=== PATIENT | female | born 1980 | race Hispanic/Latino ===

== ENCOUNTER → 2018-06-28 | Outpatient (CLI) | payer BC | END | disposition home or self-care (01) | LOC: RAH 13:44 | PROVIDERS: ATTEND Obstetrics & Gynecology | DX: D25.9 Leiomyoma of uterus, unspecified (principal); D48.62 Neoplasm of uncertain behavior of left breast; R10.2 Pelvic and perineal pain | CPT/HCPCS: 76642; 76856 ==

== ENCOUNTER 2018-07-06 18:36 | Emergency (ER) | payer BC ==
[2018-07-06 19:49] LABS: BASOPHILS % (AUTO) 0.9 % (0.0-5.0); EOSINOPHILS % (AUTO) 1.5 % (0.0-8.0); HEMATOCRIT 44.3 % (36-48); LYMPHOCYTES % (AUTO) 38.1 % (21.0-51.0); MEAN CORPUSCULAR HEMOGLOBIN 30.1 pg (27.0-33.0); MEAN CORPUSCULAR HGB CONC 33.6 g/dL (32.0-36.0); MEAN CORPUSCULAR VOLUME 89.6 fL (79-99); MONOCYTES % (AUTO) 5.4 % (3.0-13.0); NEUTROPHILS % (AUTO) 54.1 % (40.0-77.0); NUCLEATED RED BLOOD CELLS 0.1 % (0.0-0.19); PLATELET COUNT (AUTO) 292 K/uL (130-400); RED BLOOD CELL COUNT(AUTO) 4.95 MIL/uL (4.00-5.50); RED CELL DISTRIBUTION WIDTH 12.9 % (11.0-15.5); WHITE BLOOD COUNT (AUTO) 6.2 K/uL (4.8-10.8)
[2018-07-06 19:50] LABS: APPEARANCE,URINE Clear (CLEAR); BILIRUBIN,URINE Negative (NEGATIVE); COLOR,URINE Yellow (YELLOW); GLUCOSE, URINE (UA) >=1000 mg/dL (NEGATIVE); KETONES,URINE >=160 mg/dL (NEGATIVE); LEUKOCYTE ESTERASE ,URINE Negative (NEGATIVE); NITRATE,URINE Negative (NEGATIVE); OCCULT BLOOD,URINE Moderate (NEGATIVE); PH,URINE 5.5 (5.0-8.0); PROTEIN,URINE Negative (NEGATIVE); UROBILINOGEN,URINE 0.2 mg/dL (0.2-1.0)
[2018-07-06 19:56] LABS: HCG,QUAL RESULT NEGATIVE (NEGATIVE)
[2018-07-06 20:00] LABS: WBC,URINE 0-1 /HPF (0-1)
[2018-07-06 20:01] LABS: BACTERIA,URINE Rare /HPF (None Seen); SQUAMOUS EPITHELIAL CELL,UR Rare /HPF (0-2)
[2018-07-06 20:04] LABS: CREATININE 0.8 mg/dL (0.5-1.5)
[2018-07-06] MEDS ORDERED: INSULIN HUMULIN R 100 UNIT/ML 3ML ONE (21:03)
== END 2018-07-06 21:37 | disposition home or self-care (01) ==
LOC: EDH 18:36
DX: E11.65 Type 2 diabetes mellitus with hyperglycemia (principal)
CPT/HCPCS: 36415; 80048; 81001; 81025; 82948 ×3; 85025; 96361; 96374; 99285; J1815

== ENCOUNTER 2020-04-14 08:57 | Inpatient (IN) | payer BC ==
[~2020-04-14] VITALS: Ht 165.1 cm; Wt 61.2 kg
[2020-04-14] MEDS ORDERED: ONDANSETRON HCL 4 MG/2 ML VIAL ONE ×3 (09:23→18:49)
[2020-04-14 09:33] LABS: BASOPHILS % (AUTO) 0.4 % (0.0-5.0); EOSINOPHILS % (AUTO) 0.1 % (0.0-8.0); HEMATOCRIT 52.8 % (36-48); LYMPHOCYTES % (AUTO) 24.4 % (21.0-51.0); MEAN CORPUSCULAR HEMOGLOBIN 29.5 pg (27.0-33.0); MEAN CORPUSCULAR HGB CONC 33.1 g/dL (32.0-36.0); MEAN CORPUSCULAR VOLUME 88.9 fL (79-99); MONOCYTES % (AUTO) 5.1 % (3.0-13.0); PLATELET COUNT (AUTO) 460 K/uL (130-400); RED BLOOD CELL COUNT(AUTO) 5.94 MIL/uL (4.00-5.50); RED CELL DISTRIBUTION WIDTH 13.7 % (11.0-15.5); WHITE BLOOD COUNT (AUTO) 18.9 K/uL (4.8-10.8)
[2020-04-14 09:45] LABS: ALBUMIN 4.4 g/dL (3.5-5.0); BILIRUBIN,TOTAL 0.5 mg/dL (0.2-1.0); CREATININE 1.6 mg/dL (0.5-1.5); POTASSIUM 4.3 mmol/L (3.5-5.1); TOTAL PROTEIN, SERUM 9.8 g/dL (6.0-8.3)
[2020-04-14 09:54] LABS: ABG OXYGEN SATURATION 67.8 % (95.0-99.0); BASE EXCESS,VENOUS BLOOD GAS -19.3 (-2.0-3.0); HCO3,VENOUS BLOOD GAS 8.7 (21.0-28.0); PCO2,VENOUS BLOOD GAS 28 (32-45)
[2020-04-14] MEDS ORDERED: POTASSIUM BICARB/CIT AC 25 MEQ TABLET.EFF ONE (10:55)
[2020-04-14] MEDS ORDERED: INSULIN HUMULIN R 100 UNIT/ML 3ML ONE (10:56)
[2020-04-14 11:51] LABS: APPEARANCE,URINE Clear (CLEAR); BILIRUBIN,URINE Negative (NEGATIVE); COLOR,URINE Yellow (YELLOW); GLUCOSE, URINE (UA) >=1000 mg/dL (NEGATIVE); KETONES,URINE >=160 mg/dL (NEGATIVE); LEUKOCYTE ESTERASE ,URINE Negative (NEGATIVE); NITRATE,URINE Negative (NEGATIVE); OCCULT BLOOD,URINE Negative (NEGATIVE); PROTEIN,URINE POS 1+ mg/dL (NEGATIVE); UROBILINOGEN,URINE 0.2 mg/dL (0.2-1.0)
[2020-04-14] MEDS ORDERED: DEXTROSE 5 %-0.45 % NACL 1,000 ML IV PRN (12:11)
[2020-04-14] MEDS ORDERED: SODIUM CHLORIDE 0.9% 1000ML 1,000 ML IV SCH (12:11)
[2020-04-14 12:15] LABS: HCG,QUAL RESULT NEGATIVE (NEGATIVE)
[2020-04-14] MEDS ORDERED: POTASSIUM CHLORIDE 10MEQ/100ML 100 ML IV PRN (12:15)
[2020-04-14 12:16] LABS: BACTERIA,URINE Few /HPF (None Seen)
[2020-04-14 12:17] LABS: RBC,URINE 0-1 /HPF (0-1); WBC,URINE 0-1 /HPF (0-1); YEAST,URINE BUDDING Few /HPF (None Seen)
[2020-04-14 12:26] LABS: PHOSPHORUS 1.9 mg/dL (2.5-4.9)
[2020-04-14 13:38] LABS: ABG BASE EXCESS -17.5 mmol/L (-2.0-3.0); ABG HCO3 8.4 mmol/L (21.0-28.0); ABG OXYGEN SATURATION 96.3 % (95.0-99.0); ABG PCO2 22 mmHg (32-45)
[2020-04-14] MEDS ORDERED: INSULIN HUMULIN R 100 UNIT/ML 3ML IV SCH (13:40)
[2020-04-14 14:24] LABS: CREATININE 0.9 mg/dL (0.5-1.5); POTASSIUM 4.6 mmol/L (3.5-5.1)
[2020-04-14] MEDS ORDERED: SODIUM BICARB 50MEQ 50ML VIAL ONE ×2 (14:37→14:41)
[2020-04-14] MEDS ORDERED: SODIUM BICARB 50MEQ 50ML VIAL IV PRN (14:45)
[2020-04-14] MEDS ORDERED: NS-20 MEQ KCL 1000ML 1,000 ML IV ONE (15:06)
[2020-04-14] MEDS ORDERED: MORPHINE SULFATE 4 MG/1ML SYG IV PRN (16:00)
[2020-04-14] MEDS ORDERED: LACTULOSE 20 GM/30 ML UDCUP PO PRN (16:00)
[2020-04-14] MEDS ORDERED: ACETAMINOPHEN-CODEINE 300/30MG TAB PO PRN (16:00)
[2020-04-14] MEDS ORDERED: QUETIAPINE FUMARATE 25 MG TAB PO PRN (16:00)
[2020-04-14] MEDS ORDERED: ACETAMINOPHEN 325 MG TAB PO PRN ×2 (16:00)
[2020-04-14 17:58] LABS: HEMOGLOBIN A1C 5.9 % (4.0-6.0)
[2020-04-14 18:21] LABS: POTASSIUM 3.8 mmol/L (3.5-5.1)
[2020-04-14 18:31] LABS: MAGNESIUM 1.9 mg/dL (1.80-2.40)
[2020-04-14 18:36] LABS: ABG BASE EXCESS -12.1 mmol/L (-2.0-3.0); ABG HCO3 12.1 mmol/L (21.0-28.0); ABG OXYGEN SATURATION 97.2 % (95.0-99.0); ABG PCO2 25 mmHg (32-45)
[2020-04-14] MEDS ORDERED: FAMOTIDINE/PF 20 MG/2 ML VIAL IV ONE (21:18)
[2020-04-14] MEDS ORDERED: DEXTROSE 5 %-0.45 % NACL 1,000 ML IV ONE (22:14)
[2020-04-15] VITALS (28 sets, daily range): BP systolic 102–135; BP diastolic 46–94
[2020-04-15 00:18] LABS: ABG BASE EXCESS -14.6 mmol/L (-2.0-3.0); ABG HCO3 10.3 mmol/L (21.0-28.0); ABG OXYGEN SATURATION 97.6 % (95.0-99.0); ABG PCO2 23 mmHg (32-45)
[2020-04-15] MEDS ORDERED: ASPIRIN 325MG EC TAB 325 MG TABLET.DR PO STA (00:36)
[2020-04-15] MEDS ORDERED: SODIUM BICARB 8.4% 50ML SYRING 150 MEQ in DEXTROSE 5%-WATER 850 ML IV SCH (00:45)
[2020-04-15] MEDS ORDERED: SODIUM BICARB 8.4% 50ML SYRINGE IVP SCH (00:45)
[2020-04-15] MEDS ORDERED: DEXTROSE 5%-WATER 1,000 ML IV ONE (00:55)
[2020-04-15 01:02] LABS: CREATININE 0.9 mg/dL (0.5-1.5); MAGNESIUM 2.1 mg/dL (1.80-2.40); POTASSIUM 3.6 mmol/L (3.5-5.1)
[2020-04-15] MEDS ORDERED: INSULIN HUMULIN R 100 UNIT/ML 3ML ONE (01:02)
[2020-04-15] MEDS: ONDANSETRON HCL 4 MG/2 ML VIAL IV PRN ×3 (03:45→17:25)
[2020-04-15 04:37] LABS: CREATININE 0.9 mg/dL (0.5-1.5); MAGNESIUM 2.2 mg/dL (1.80-2.40); POTASSIUM 3.4 mmol/L (3.5-5.1)
[2020-04-15 07:41] LABS: BASOPHILS % (AUTO) 0.6 % (0.0-5.0); EOSINOPHILS % (AUTO) 0.2 % (0.0-8.0); HEMATOCRIT 34.8 % (36-48); LYMPHOCYTES % (AUTO) 19.4 % (21.0-51.0); MEAN CORPUSCULAR HEMOGLOBIN 29.6 pg (27.0-33.0); MEAN CORPUSCULAR HGB CONC 33.9 g/dL (32.0-36.0); MEAN CORPUSCULAR VOLUME 87.2 fL (79-99); MONOCYTES % (AUTO) 8.8 % (3.0-13.0); NEUTROPHILS % (AUTO) 70.4 % (40.0-77.0); PLATELET COUNT (AUTO) 301 K/uL (130-400); RED BLOOD CELL COUNT(AUTO) 3.99 MIL/uL (4.00-5.50); RED CELL DISTRIBUTION WIDTH 14.1 % (11.0-15.5); WHITE BLOOD COUNT (AUTO) 12.2 K/uL (4.8-10.8)
[2020-04-15] MEDS ORDERED: POTASSIUM CHLORIDE 20 MEQ/100 ML BAG IV SCH (08:15)
[2020-04-15 08:21] LABS: ABG OXYGEN SATURATION 74.7 % (95.0-99.0); BASE EXCESS,VENOUS BLOOD GAS -1.2 (-2.0-3.0); HCO3,VENOUS BLOOD GAS 23.5 (21.0-28.0); PCO2,VENOUS BLOOD GAS 40 (32-45); PH,VENOUS BLOOD GAS 7.391 (7.350-7.450)
[2020-04-15] MEDS ORDERED: POTASSIUM CHLORIDE 20MEQ/100ML 100 ML IV SCH (08:30)
[2020-04-15] MEDS: FAMOTIDINE/PF 20 MG/2 ML VIAL IV SCH ×3 (08:42→22:51)
[2020-04-15] MEDS: ENOXAPARIN SODIUM 40 MG/0.4 ML SYRINGE SQ SCH ×2 (08:43→22:52)
[2020-04-15] MEDS ORDERED: ENOXAPARIN SODIUM 40 MG/0.4 ML SYRINGE SQ SCH (09:00)
[2020-04-15] MEDS ORDERED: D5W-1/2 NS/20MEQ KCL 1,000 ML IV SCH (10:45)
[2020-04-15] MEDS: INSULIN HUMULIN R 100 UNIT/ML 3ML SQ SCH ×3 (11:30→21:00)
[2020-04-15 11:43] LABS: ABG BASE EXCESS -4.1 mmol/L (-2.0-3.0); ABG HCO3 20.7 mmol/L (21.0-28.0); ABG OXYGEN SATURATION 33.9 % (95.0-99.0); ABG PCO2 37 mmHg (32-45)
[2020-04-15 11:55] LABS: CREATININE 0.8 mg/dL (0.5-1.5); PHOSPHORUS 1.1 mg/dL (2.5-4.9); POTASSIUM 3.4 mmol/L (3.5-5.1)
[2020-04-15] MEDS: POTASSIUM PHOSPHATE 30 MMOL in SODIUM CHLORIDE 0.9% 250 ML IV SCH (13:36)
--- NOTE | 2020-04-15 14:36 | NUR ---
SHANDA PLAN PATIENT IN COVID UNIT. CALLED ROOM NO ANSWER. XIOMARA WILL CONTINUE TO FOLLOW. Addendum: 04/15/20 at 1438 by ARI LOPEZ RN CM Amended: Links added.
--- NOTE | 2020-04-15 16:16 | NUR ---
CHART CHECK COMPLETED. Pt IS A 39 Y.O. FEMALE ADMITTED SECONDARY TO DKA, ACUTE KIDNEY INJURY. Pt HAS A PAST MEDICAL HISTORY SIGNIFICANT FOR DMII, ANXIETY. Pt CURRENTLY NPO SECONDARY TO N&V. PLEASE REQUEST FORMAL SKILLED SPEECH/SWALLOW EVALUATION IF Pt PRESENTS WITH +S/S OF ASPIRATION SUCH COUGH RESPONSE, THROAT CLEAR, OR WET VOCAL QUALITY DURING P.O. Addendum: 04/15/20 at [address] Amended: Links added.
[2020-04-15 20:39] LABS: CREATININE 0.8 mg/dL (0.5-1.5); POTASSIUM 3.7 mmol/L (3.5-5.1)
[2020-04-16] VITALS (11 sets, daily range): BP systolic 114–132; BP diastolic 74–95
[2020-04-16 06:11] LABS: BASOPHILS % (AUTO) 0.9 % (0.0-5.0); EOSINOPHILS % (AUTO) 0.2 % (0.0-8.0); HEMATOCRIT 36.9 % (36-48); LYMPHOCYTES % (AUTO) 30.5 % (21.0-51.0); MEAN CORPUSCULAR HEMOGLOBIN 28.8 pg (27.0-33.0); MEAN CORPUSCULAR HGB CONC 33.6 g/dL (32.0-36.0); MEAN CORPUSCULAR VOLUME 85.8 fL (79-99); MONOCYTES % (AUTO) 6.7 % (3.0-13.0); PLATELET COUNT (AUTO) 282 K/uL (130-400); WHITE BLOOD COUNT (AUTO) 5.7 K/uL (4.8-10.8)
[2020-04-16 06:23] LABS: CREATININE 0.6 mg/dL (0.5-1.5); PHOSPHORUS 1.6 mg/dL (2.5-4.9); POTASSIUM 3.4 mmol/L (3.5-5.1)
[2020-04-16 07:00] LABS: ABG BASE EXCESS -8.1 mmol/L (-2.0-3.0); ABG HCO3 15.3 mmol/L (21.0-28.0); ABG OXYGEN SATURATION 96.6 % (95.0-99.0); ABG PCO2 27 mmHg (32-45)
[2020-04-16] MEDS: INSULIN HUMULIN R 100 UNIT/ML 3ML SQ SCH ×4 (07:30→21:00)
[2020-04-16] MEDS: FAMOTIDINE/PF 20 MG/2 ML VIAL IV SCH ×2 (07:59→21:00)
[2020-04-16] MEDS: ENOXAPARIN SODIUM 40 MG/0.4 ML SYRINGE SQ SCH ×2 (08:00→21:00)
[2020-04-16] MEDS: ONDANSETRON HCL 4 MG/2 ML VIAL IV PRN (08:00)
[2020-04-16] MEDS: POTASSIUM PHOSPHATE 30 MMOL in SODIUM CHLORIDE 0.9% 250 ML IV SCH (08:57)
--- NOTE | 2020-04-16 10:54 | NUR ---
SHANDA PLAN VISITED WITH PATIENT. PATIENT IN COVID UNIT. CALLED ROOM NO ANSWER. XIOMARA WILL CONTINUE TO FOLLOW. Addendum: 04/16/20 at 1056 by ARI LOPEZ RN CM Amended: Links added.
--- NOTE | 2020-04-16 11:00 | NUR ---
TRANSFER TO 330 REPORT GIVEN, PATIENT STABLE, TRANSFERRING TO ROOM 330 ON WHEELCHAIR.
--- NOTE | 2020-04-16 11:08 | NUR ---
TRANSFER FROM 2ND PATIENT RECEIVED FROM 2ND FLOOR VIA WHEELCHAIR IN STABLE CONDITION. SHE HAS BEEN ORIENTED TO ROOM AND USE OF CALL LIGHT. BED IS IN LOWEST POSITION AND LOCKED. WILL CONTINUE TO MONITOR.
[2020-04-17] VITALS: BP 126/98
[2020-04-17 03:43] LABS: EOSINOPHILS % (AUTO) 0.2 % (0.0-8.0); HEMATOCRIT 35.9 % (36-48); LYMPHOCYTES % (AUTO) 39.9 % (21.0-51.0); MEAN CORPUSCULAR HEMOGLOBIN 29.4 pg (27.0-33.0); MEAN CORPUSCULAR HGB CONC 34.5 g/dL (32.0-36.0); MEAN CORPUSCULAR VOLUME 85.1 fL (79-99); MONOCYTES % (AUTO) 5.7 % (3.0-13.0); PLATELET COUNT (AUTO) 247 K/uL (130-400); RED BLOOD CELL COUNT(AUTO) 4.22 MIL/uL (4.00-5.50); RED CELL DISTRIBUTION WIDTH 13.7 % (11.0-15.5)
[2020-04-17 04:00] VITALS: BP 120/77
[2020-04-17 04:05] LABS: ALBUMIN 2.8 g/dL (3.5-5.0); BILIRUBIN,TOTAL 0.3 mg/dL (0.2-1.0); CREATININE 0.5 mg/dL (0.5-1.5); MAGNESIUM 2.1 mg/dL (1.80-2.40); PHOSPHORUS 1.9 mg/dL (2.5-4.9); POTASSIUM 3.3 mmol/L (3.5-5.1); TOTAL PROTEIN, SERUM 6.4 g/dL (6.0-8.3)
[2020-04-17] MEDS: INSULIN HUMULIN R 100 UNIT/ML 3ML SQ SCH (07:30)
[2020-04-17 09:01] VITALS: BP 118/81
[2020-04-17] MEDS: ENOXAPARIN SODIUM 40 MG/0.4 ML SYRINGE SQ SCH (09:44)
[2020-04-17] MEDS: FAMOTIDINE/PF 20 MG/2 ML VIAL IV SCH (09:44)
[2020-04-17] MEDS ORDERED: POTASSIUM CHLORIDE 20 MEQ ERTAB PO ONE (10:08)
[2020-04-17 11:46] VITALS: BP 122/84
[2020-05-09] MEDS ORDERED: SEMAGLUTIDE SQ (12:28)
[2020-05-09] MEDS ORDERED: LISI2.5T2 PO (12:28)
[2020-05-09] MEDS ORDERED: DULO60CA64 PO (12:28)
[2020-05-09] MEDS ORDERED: PRAV40TA3 PO (12:28)
[2020-05-09] MEDS ORDERED: ALLERGY PILL PO (12:28)
[2020-05-09] MEDS ORDERED: EMPA1TAB7 PO (12:30)
== END 2020-04-17 14:30 | disposition home or self-care (01) | DRG 638 ==
LOC: EDH 08:57 → EDHIP 12:11 → 2CH 23:19 → 3AH 04-16 11:03
PROVIDERS: ADMIT Internal Medicine Critical Care Medicine; ATTEND Internal Medicine Critical Care Medicine
DX: E11.10 Type 2 diabetes mellitus with ketoacidosis without coma (principal); N17.9 Acute kidney failure, unspecified; E83.39 Other disorders of phosphorus metabolism; E78.5 Hyperlipidemia, unspecified; E87.6 Hypokalemia; F41.1 Generalized anxiety disorder; Z20.828 Contact with and (suspected) exposure to other viral communicable diseases; D25.9 Leiomyoma of uterus, unspecified; I10 Essential (primary) hypertension; Z79.899 Other long term (current) drug therapy
CPT/HCPCS: 36415; 36600; 71045; 80048; 80053; 81001; 81025; 82010; 82435; 82728; 82803; 82947; 82948; 83036; 83605; 83615; 83690; 83735; 84100; 84132; 84145; 84295; 85018; 85025; 85378; 87426; 99291; G0378; J1650; J1815; J2405; J3480; J3490; J7042; J7050; J7070; U0003

== ENCOUNTER 2020-05-10 08:04 | Observation (INO) | payer BC ==
[2020-05-03 12:08] LABS: BASOPHILS % (AUTO) 1.3 % (0.0-5.0); EOSINOPHILS % (AUTO) 2.9 % (0.0-8.0); HEMATOCRIT 44.2 % (36-48); LYMPHOCYTES % (AUTO) 51.1 % (21.0-51.0); MEAN CORPUSCULAR HEMOGLOBIN 29.5 pg (27.0-33.0); MEAN CORPUSCULAR HGB CONC 32.1 g/dL (32.0-36.0); MEAN CORPUSCULAR VOLUME 91.7 fL (79-99); MONOCYTES % (AUTO) 5.1 % (3.0-13.0); NEUTROPHILS % (AUTO) 39.3 % (40.0-77.0); PLATELET COUNT (AUTO) 442 K/uL (130-400); RED BLOOD CELL COUNT(AUTO) 4.82 MIL/uL (4.00-5.50); WHITE BLOOD COUNT (AUTO) 6.1 K/uL (4.8-10.8)
[2020-05-09 12:13] VITALS: BP 112/92
[~2020-05-10] VITALS: Ht 165.1 cm; Wt 60.0 kg
[2020-05-10] VITALS (22 sets, daily range): BP systolic 81–123; BP diastolic 43–87
[~2020-05-10 08:04] MED LIST: ALLERGY PILL PO; CALDOLOR 800MG+NS 250ML 250 ML IV SCH; CEFAZOLIN SODIUM 1 GM VIAL IVP SCH; DULO60CA64 PO; EMPA1TAB7 PO; LACTATED RINGERS 1000ML 1,000 ML IV SCH; LISI2.5T2 PO; PRAV40TA3 PO; SEMAGLUTIDE SQ
--- NOTE | 2020-05-10 08:50 | NUR ---
preop pt arrived ambulatory in no distress. pt oriented to room and call light. pt here for eua/ebony. will continue to monitor pt.
[2020-05-10] MEDS ORDERED: CALDOLOR 800MG+NS 250ML 250 ML IV ONE (09:09)
[2020-05-10] MEDS ORDERED: SODIUM CHLORIDE 0.9% 1000ML 1,000 ML IV ONE (09:25)
[2020-05-10] MEDS ORDERED: FENTANYL CITRATE PF 50 MCG/1 ML 2ML VIAL ONE (10:39)
[2020-05-10] MEDS ORDERED: MIDAZOLAM HCL 1 MG/ML 2ML VIAL ONE (10:39)
[2020-05-10] MEDS ORDERED: DURAMORPH PF1 MG/ML 10ML AMP IV ONE (10:44)
[2020-05-10] MEDS ORDERED: PROPOFOL 10 MG/ML 20ML VIAL IV ONE ×2 (10:53→11:57)
[2020-05-10] MEDS ORDERED: ROCURONIUM 10MG/1ML SYR 10 MG/ML ML ONE (10:55)
[2020-05-10] MEDS ORDERED: ONDANSETRON HCL 4 MG/2 ML VIAL ONE (11:06)
[2020-05-10] MEDS ORDERED: DEXAMETHASONE SOD PHOSPHATE 4 MG/ML 1ML VIAL ONE (11:06)
[2020-05-10] MEDS ORDERED: SCOPOLAMINE HYDROBROMIDE 1 EACH ADH..PATCH TD ONE (11:42)
[2020-05-10] MEDS ORDERED: ONDANSETRON HCL 4 MG/2 ML VIAL IVP PRN (12:00)
[2020-05-10] MEDS ORDERED: BISACODYL 10 MG SUPP.RECT RC PRN (12:00)
[2020-05-10] MEDS ORDERED: SIMETHICONE 80 MG TAB.CHEW PO PRN (12:00)
[2020-05-10] MEDS ORDERED: DIPH,PERTUSS(ACELL),TET VAC/PF 0.5 ML VIAL IM SCH (12:00)
[2020-05-10] MEDS ORDERED: IBUPROFEN 800 MG TAB PO PRN (12:00)
[2020-05-10] MEDS ORDERED: ACETAMINOPHEN-CODEINE 300/30MG TAB PO PRN ×2 (12:00)
[2020-05-10] MEDS ORDERED: MEPERIDINE-PF 25 MG/ML SYG IM PRN (12:00)
[2020-05-10] MEDS ORDERED: PROMETHAZINE HCL 25 MG/ML 1ML AMPULE IM PRN ×2 (12:00)
[2020-05-10] MEDS: DEXTROSE 5 %-0.45 % NACL 1,000 ML IV PRN ×2 (14:12→21:29)
--- NOTE | 2020-05-10 20:15 | NUR ---
ACTIVITY ASSISTED TO SIDE OF BED TO DANGLE, TOLERATED WELL, INSTRUCTED ON USE OF I. S. Addendum: 05/11/20 at 0257 by KELECHI ISSA LVN Amended: Links added.
[2020-05-10] MEDS: HYDROCODONE/ACETAMINOPHEN 5/325 MG TAB PO PRN (20:22)
[2020-05-10] MEDS: DOCUSATE SODIUM 100 MG CAP PO PRN (20:22)
[2020-05-10] MEDS: CALDOLOR 800MG+NS 250ML 250 ML IV SCH (20:31)
[2020-05-11 03:17] VITALS: BP 103/69
[2020-05-11] MEDS: CALDOLOR 800MG+NS 250ML 250 ML IV SCH (04:04)
[2020-05-11] MEDS: HYDROCODONE/ACETAMINOPHEN 5/325 MG TAB PO PRN (05:22)
--- NOTE | 2020-05-11 06:05 | NUR ---
ACTIVITY/ CURTIS CATHETER F/C REMOVED , CATHETER INTACT, TOLERATED WELL, ASSISTED OUT OF BED TO CHAIR , TOLERATED WELL, CALL LIGHT WITHIN, REACH , INSTRUCTED TO CALL FOR ASSISTANCE WHEN SHE HAS URGE TO VOID ACKNOWLEDGES UNDERSTANDING Addendum: 05/11/20 at 0635 by KELECHI ISSA LVN Amended: Links added.
[2020-05-11 07:38] VITALS: BP 134/84
--- NOTE | 2020-05-11 08:40 | NUR ---
PATIENT ASSESSED AND CLAIMS TO BE IN SEVERE PAIN AND WILL MEDICATE WITH MOTRIN FOR PAIN. PATIENT STATES NOT PASSING GAS AND REFUSED TO HAVE A DULCOLAX SUPPOSITORY ADMINISTERED. PATIENT UP TO CHAIR AND WAS ENCOURAGED TO AMBULATE IN HALLWAY ONCE PAIN IS RELIEF.
[2020-05-11] MEDS: DOCUSATE SODIUM 100 MG CAP PO PRN (09:32)
--- NOTE | 2020-05-11 11:00 | NUR ---
DR. CHU WAS GIVEN UPDATE ON PATIENT AND DISCHARGE ORDER GIVEN.
[2020-05-11 11:34] VITALS: BP 131/85
[2020-05-11] MEDS ORDERED: SIMETHICONE 80 MG TAB.CHEW PO PRN (11:45)
[2020-05-11] MEDS ORDERED: IBUPROFEN 800 MG TAB PO SCH (12:00)
--- NOTE | 2020-05-11 13:27 | NUR ---
VERBALIZES VOIDING SEVERAL TIME BUT STILL NOT PASSING GAS. WHEN OFFERED DULCOLAX SUPPOSITORY AGAIN, PATIENT AGREED TO HAVE IT GIVEN. DULCOLAX WAS ADMINISTERED AND ENCOURAGED PATIENT TO WALK IN HALLWAY.
--- NOTE | 2020-05-11 15:00 | NUR ---
VERBALIZED PASSING GAS AND HAVING A BM AND INDICATED READY TO GO HOME. PATIENT INSTRUCTED ON NEED TO DO DISCHARGE INSTRUCTIONS. ENCOURAGE TO WALK AND GET DRESS AND INSTRUCTIONS WILL BE GIVEN WHEN READY.
[2020-05-11 16:14] VITALS: BP 128/90
--- NOTE | 2020-05-11 16:40 | NUR ---
DISCHARGE INSTRUCTIONS GIVEN AND WAS TAKEN AT THIS TIME TO FAMILY VEHICLE AND WAS DISCHARGED TO SPOUSE IN STABLE CONDITION. PATIENT VERBALIZED DOING SO MUCH BETTER AFTER DULCOLAX SUPPOSITORY AND WAS HAPPY TO BE GOING HOME.
[2020-05-11] MEDS ORDERED: SIMVASTATIN 20 MG TABLET PO SCH (21:00)
[2020-05-12] MEDS ORDERED: LISINOPRIL 2.5 MG TABLET PO SCH (09:00)
[2020-05-12] MEDS ORDERED: DULOXETINE HCL 30 MG CAP PO SCH (09:00)
== END 2020-05-11 16:40 | disposition home or self-care (01) ==
LOC: DAHIP 08:04 → EDSTATUS 09:00 → WSH 13:25
PROVIDERS: ADMIT Obstetrics & Gynecology; ATTEND Obstetrics & Gynecology
DX: D25.9 Leiomyoma of uterus, unspecified (principal); Z20.828 Contact with and (suspected) exposure to other viral communicable diseases; N83.8 Other noninflammatory disorders of ovary, fallopian tube and broad ligament
CPT/HCPCS: 36415 ×2; 58150; 82948 ×2; 84703; 85025; 86850 ×2; 86900 ×2; 86901 ×2; 90471; 90715; 96361 ×2; 96365; 96366 ×2; 96372; A4213; A4215; A4221; A4222; A4223; A4344; A4649; A4663; A4930; A6260; C9803; G0168; G0378 ×18; J0690; J1100; J1741 ×3; J2175; J2250; J2274; J2405; J2550; J2704 ×2; J3010; J7030 ×3; L0625; U0003; 90714; J7120

== ENCOUNTER 2021-12-30 15:41 | Emergency (ER) | payer BC ==
[~2021-12-30] VITALS: Ht 165.1 cm; Wt 64.0 kg
[~2021-12-30 15:41] MED LIST changes: -CALDOLOR 800MG+NS 250ML 250 ML IV SCH; -CEFAZOLIN SODIUM 1 GM VIAL IVP SCH; -LACTATED RINGERS 1000ML 1,000 ML IV SCH; +LISI2.5T13 PO; -LISI2.5T2 PO
[2021-12-30 16:27] LABS: BASOPHILS % (AUTO) 1.2 % (0.0-5.0); EOSINOPHILS % (AUTO) 0.4 % (0.0-8.0); HEMATOCRIT 47.2 % (36-48); LYMPHOCYTES % (AUTO) 31.5 % (21.0-51.0); MEAN CORPUSCULAR HGB CONC 31.4 g/dL (32.0-36.0); MEAN CORPUSCULAR VOLUME 92.5 fL (79-99); MONOCYTES % (AUTO) 4.1 % (3.0-13.0); NEUTROPHILS % (AUTO) 62.7 % (40.0-77.0); PLATELET COUNT (AUTO) 325 K/uL (130-400); RED CELL DISTRIBUTION WIDTH 14.1 % (11.0-15.5); WHITE BLOOD COUNT (AUTO) 6.8 K/uL (4.8-10.8)
[2021-12-30 16:50] LABS: APPEARANCE,URINE Clear (CLEAR); BILIRUBIN,URINE Negative (NEGATIVE); COLOR,URINE Yellow (YELLOW); GLUCOSE, URINE (UA) >=1000 mg/dL (NEGATIVE); KETONES,URINE >=80 mg/dL (NEGATIVE); LEUKOCYTE ESTERASE ,URINE Negative (NEGATIVE); NITRATE,URINE Negative (NEGATIVE); OCCULT BLOOD,URINE Negative (NEGATIVE); PH,URINE 5.5 (5.0-8.0); PROTEIN,URINE Negative (NEGATIVE); UROBILINOGEN,URINE 0.2 mg/dL (0.2-1.0)
[2021-12-30 16:54] LABS: CARBON DIOXIDE 28 mmol/L (21-32); CHLORIDE 104 mmol/L (101-111); CREATININE 0.7 mg/dL (0.5-1.5); GLOMERULAR FILTR. RATE CALC 99 mL/min (>60); GLUCOSE,RANDOM 93 mg/dL (70-105); POTASSIUM 4.5 mmol/L (3.5-5.1); SODIUM SERUM 143 mmol/L (136-145); UREA NITROGEN, BLOOD 14 mg/dL (7-18)
[2021-12-30 16:56] LABS: ALANINE AMINOTRANSFERASE 22 U/L (12-78); ALBUMIN 4.4 g/dL (3.5-5.0); ALCOHOL, BLOOD 5 mg/dL (0-10); ASPARTATE AMINOTRANSFERASE 13 U/L (10-37); BILIRUBIN,TOTAL 0.3 mg/dL (0.2-1.0); SALICYLATE < 2.8 mg/dL (2.8-20.0); TOTAL PROTEIN, SERUM 7.8 g/dL (6.0-8.3)
[2021-12-30 16:57] LABS: HCG,QUAL RESULT NEGATIVE (NEGATIVE)
[2021-12-30 16:57] LABS: ACETAMINOPHEN < 1 mcg/mL (10-30)
[2021-12-30 16:58] LABS: AMPHET/METH SCREEN,URINE NEGATIVE (NEGATIVE); BARBITURATE SCREEN, URINE NEGATIVE (NEGATIVE); BENZODIAZEPINES SCREEN,URINE NEGATIVE (NEGATIVE); CANNABINOID SCREEN,URINE POSITIVE (NEGATIVE); COCAINE SCREEN,URINE NEGATIVE (NEGATIVE); OPIATE SCREEN,URINE NEGATIVE (NEGATIVE); PHENCYCLIDINE SCREEN,URINE NEGATIVE (NEGATIVE)
[2021-12-30 16:59] LABS: BACTERIA,URINE Rare /HPF (None Seen); RBC,URINE 0-1 /HPF (0-1); SQUAMOUS EPITHELIAL CELL,UR Rare /HPF (0-2); WBC,URINE 0-1 /HPF (0-1)
[2021-12-30 20:05] VITALS: BP 122/56
== END 2021-12-30 20:40 | disposition home or self-care (01) ==
LOC: EDH 15:41
DX: R45.851 Suicidal ideations (principal); F32.A Depression, unspecified; E11.9 Type 2 diabetes mellitus without complications; I10 Essential (primary) hypertension; Z79.899 Other long term (current) drug therapy; Z79.84 Long term (current) use of oral hypoglycemic drugs; Z98.890 Other specified postprocedural states
CPT/HCPCS: 36415; 80053; 80305; 81001; 81025; 85025; 99283; G0481

== ENCOUNTER → 2023-02-26 | Outpatient (CLI) | payer BC | END | disposition home or self-care (01) | LOC: RAH 11:30 | PROVIDERS: ATTEND Family Medicine | DX: K43.9 Ventral hernia without obstruction or gangrene (principal); Z98.82 Breast implant status | CPT/HCPCS: 74150 ==